=== PATIENT | female | born 1945 | race African-American/Black ===

== ENCOUNTER 2017-11-24 14:51 | Emergency (ER) | payer MEDICARE, MEDICAID ==
[~2017-11-24] VITALS: Ht 162.6 cm; Wt 54.0 kg
[2017-11-24] MEDS ORDERED: TETANUS, DIPHTHERIA, PERTUSSIS VAC/PF 0.5ML (>7YR OLD) IM ONE (17:30)
[2017-11-24] MEDS ORDERED: LIDOCAINE HCL 1% 20ML VIAL (Pyxis) INJ INFIL ONE (18:30)
[2017-11-24] MEDS ORDERED: LIDOCAINE HCL/PF 1% 10 MG/ML 5ML VIAL IJ SCH (18:45)
[2017-11-24] MEDS ORDERED: BACITRACIN ZINC OINT UDPKT TOP ONE (19:45)
[2017-11-24 20:08] VITALS: BP 130/68
== END 2017-11-24 20:10 | disposition home or self-care (01) ==
LOC: ER 14:51
DX: S91.311A Laceration without foreign body, right foot, initial encounter (principal); I10 Essential (primary) hypertension; F17.200 Nicotine dependence, unspecified, uncomplicated; Z88.6 Allergy status to analgesic agent; W22.8XXA Striking against or struck by other objects, initial encounter; Y93.89 Activity, other specified; Y92.811 Bus as the place of occurrence of the external cause
CPT/HCPCS: 12002; 73630; 90471; 90715; 99284; J3490

== ENCOUNTER 2017-12-08 09:08 | Emergency (ER) | payer MEDICARE, MEDICAID ==
[~2017-12-08] VITALS: Ht 162.6 cm; Wt 55.0 kg
[2017-12-08 09:11] VITALS: BP 136/55
[2017-12-08] MEDS ORDERED: BACITRACIN ZINC OINT UDPKT TOP ONE (10:30)
== END 2017-12-08 10:34 | disposition home or self-care (01) ==
LOC: ER 09:08
DX: Z48.02 Encounter for removal of sutures (principal)
CPT/HCPCS: 99282

== ENCOUNTER 2021-10-06 11:36 | Emergency (ER) | payer OTHER, MEDICAID ==
[~2021-10-06] VITALS: Ht 170.2 cm; Wt 46.0 kg
[2021-10-06 12:41] VITALS: BP 132/64
[2021-10-06 13:11] LABS: HEMATOCRIT. 57.7 % (36.0-48.0); HEMOGLOBIN. 18.4 g/dL (12.0-16.0); MEAN CORPUSCULAR HEMOGLOBIN 25.8 pg (28.0-32.0); RED BLOOD CELL COUNT 7.13 mill/uL (4.2-5.4)
[2021-10-06 13:17] LABS: CHLORIDE 94 mEq/L (98-107)
[2021-10-06 14:02] LABS: PLATELET ESTIMATE NORMAL
[2021-10-06 14:04] LABS: MEAN PLATELET VOLUME 10.2 fl (7.4-10.4); PLATELET 130 x1000/uL (130-400)
[2021-10-06] MEDS ORDERED: ACET-2708 MT (14:40)
[2021-10-06] MEDS ORDERED: OMEP20CA14 MT (15:25)
== END 2021-10-06 15:45 | disposition home or self-care (01) ==
LOC: ER 11:36
DX: R10.30 Lower abdominal pain, unspecified (principal); Z88.6 Allergy status to analgesic agent
CPT/HCPCS: 36415; 74176; 80053; 85025; 99284